=== PATIENT | male | born 1940 | race Caucasian/White ===

== ENCOUNTER 2017-03-17 20:20 | Inpatient (IN) | payer MEDICARE, OTHER ==
[~2017-03-17] VITALS: Ht 177.8 cm; Wt 104.2 kg
--- NOTE | ~2017-03-17 | ECH ---
Transthoracic Echocardiography Report (TTE) Demographics Patient Name EMILEE ESTES Date of Study 03/18/2017 Patient Number [id number] Visit Number [id number] Date of 1940 Room Number 311 Accession Number [id number] Gender Male Age 76 year(s) Referring Melissa JANE Grid Molder Maria D Cristina [facility] Physician Meet Hagan MD Physician Interpreting [facility] Rik R Fire Chief Physician MD Supervising Ordering Physician Melissa Dsouza MD/[facility] Nurse Stress Financial Reserve Clerk Conclusions Summary Technically fair exam. The estimated left ventricular ejection fraction is 60-65%. Moderate left ventricular hypertrophy. Diastolic assessment reveals Grade I diastolic dysfunction. The left atrium is severely dilated by LA volume index measurement. The right atrium is mildly dilated. Mild mitral regurgitation by color Doppler. Aortic sclerosis with no hemodynamically significant stenosis. Procedure Type of Study TTE procedure:Echo Complete SF. Procedure Date Date: 03/18/2017 Start: 10:21 AM Technical Quality: Fair due to body habitus. Indications:Chest pain and Acute IA. Appropriate Use Criteria: 9 Height: 70 inches Weight: 95.4 pounds BSA: 1.52 m Rhythm: Sinus with bundle branch block HR: 70 bpm BP: 130/68 mmHg Allergies - No known allergies. M-Mode/2D Measurements LV Diastolic Dimension: 4.85 cm LV Systolic Dimension: 3.17 cm LV Septum Diastolic: 1.8 cm LV PW Diastolic: 1.42 cm AO Root Dimension: 2.69 cm Cardiac Output: 4.53 l/min LA Dimension: 3.94 cm Cardiac Index: 2.98 l/min*m RV Diastolic Dimension: 3.43 cm LA volume index: 52 ml/m LVOT: 1.99 cm LVOT VTI: 20.82 cm RV Base: 4.6 cm LV Stroke volume: 64.72 ml RV Mid: 3.4 cm LV Stroke volume index: 42.58 ml/m RV Length: 7.4 cm Doppler Measurements AV Peak Velocity: 1.6 m/s MV Peak E-Wave: 0.94 m/s AV Peak Gradient: 10.24 mmHg MV Peak A-Wave: 1.31 m/s AV Mean Gradient: 6.12 mmHg MV E/A Ratio: 0.71 LVOT Peak Velocity: 1.19 m/s MV P1/2t: 87.1 msec AV Area (Continuity):2.05 cm MV Deceleration Time: 335.7 msec MV Area (PHT): 2.52 cm E' Septal Velocity: 0.05 m/s A' Septal Velocity: 0.1 m/s E' Lateral Velocity: 0.07 m/s A' Lateral Velocity: 0.09 m/s RA Area: 22.84 cm Findings Left Ventricle The left ventricle is normal in size . Moderate to severe left ventricular hypertrophy. Diastolic assessment reveals Grade I diastolic dysfunction. Right Ventricle Normal right ventricle structure and function. Left Atrium The left atrium is severely dilated by LA volume index measurement. Right Atrium The right atrium is mildly dilated. Mitral Valve Mild mitral annular calcification. Mild mitral regurgitation by color Doppler. Aortic Valve The aortic valve is mild to moderately sclerotic. There is no aortic regurgitation by color Doppler. Tricuspid Valve Normal tricuspid valve structure and function. Pulmonic Valve Normal pulmonic valve structure and function. Mild pulmonic valve regurgitation by color Doppler. Pericardial Effusion No evidence of pericardial effusion. Miscellaneous Visualized portions of the aortic root and ascending aorta appear normal in size. Pleural Effusion No evidence of pleural effusion. Contractility Score LV regional wall motion:(0-Non visualized 1-Normal 2-Hypokinesis 3-Akinesis 4-Dyskinesis 5-Aneurysm) Signature
--- NOTE | ~2017-03-17 | CATH ---
Cardiac Diagnostic + PCI Report Demographics Patient Name MEERA Varela Gender Male Date of 1940 Age 76 year(s) Patient Number [id number] Date of Study 03/17/2017 Visit Number [id number] Room Number 311 Corporate ID Ht 177.8 cm Wt 43.27 kg Accession Number [id number] BSA 1.52 m kg/m Referring Melissa JANE Primary Physician Physician Meet Hagan MD Performing Melissa JANE Secondary Physician Physician Meet Diagnostic Melissa JANE Assisting Physician Physician Meet Interventional Melissa JANE Physician Retail Cosmetics Sales Beauty Advisor Physician Meet Findings and Conclusions Diagnostic Findings and Conclusion Severe two vessel coronary artery disease. 100% distal RCA culprit lesion. Diagnostic Recommendations PCI of the RCA Interventional Findings and Conclusion Successful PCI of the distal RCA with a 2.75 x 16 Synergy stent. Interventional Recommendations Dual antiplatelet therapy. Risk factor modification. Staged PCI of the LAD. Procedure Description The patient was brought to the diagnostic cardiac catheterization laboratory by labor expediter personal. Physician deemed procedure as EMERGENT. Verbal consent was obtained. The planned puncture-incision site(s) were clipped and prepped with ChloraPrep and draped in the usual sterile manner. Conscious sedation, supplemental oxygen, and pain control medications were delivered by a registered nurse under physician guidance. Surface ECG rhythm, blood pressure measurement, and pulse oximetry were monitored throughout the procedure. Arterial access. The right radial access site was infiltrated with lidocaine. The vessel was entered with the Seldinger technique. A 6F sheath was advanced into the vessel and used for catheter placement. After unsuccessful attempts to engage the coronary arteries right femoral site was infiltrated with lidocaine. The vessel was entered with the Seldinger technique. A 6F sheath was advanced into the vessel and used for catheter placement. Selective left coronary angiography. A JL4 catheter was advanced into the left coronary vessel ostium under Fluoroscopic guidance. Contrast was injected by hand. Images were obtained in multiple projections. Selective right coronary angiography. An FR4 guide catheter was advanced into the right coronary vessel ostium under fluoroscopic guidance. Contrast was injected by hand. Images were obtained in multiple projections. Angioplasty and Stent Placement: The FR$ guiding catheter was used to intubate the vessel. A 0.14 Runthrough wire was then used to cross the lesion. A 2.5 x 12 Emerge balloon catheter was placed across the lesion and inflated. The balloon catheter was then removed. A 2.75 x 16 Synergy Drug Eluting Stent was placed and inflated. Post placement angiograms were performed. Left heart catheterization. An angled pigtail catheter was advanced across the aortic valve to the left ventricle under fluoroscopic guidance. Resting hemodynamics were obtained. Hemostasis: The sheath(s) was removed. Perclose(s) were tied and hemostasis was achieved. Hemostasis: The sheath was removed and a TR Band was placed. Hemostasis was achieved. The patient was transferred to the ICU nursing floor via cart accompanied by a nurse. The patient left the laboratory in stable condition. Diagnostic Cath Status: Emergency Procedure Procedure Type Diagnostic procedure:Angiography:, Coronary Angios w/[facility] PCI procedure:Drug Eluting Coronary Stent:, RCA Indications: Acute VA. The procedure was explained in detail to the patient. Risks, complications and alternative treatments were reviewed. Written consent was obtained. Medications Reviewed with Patient prior to Procedure. Complications: No Complication. Angiographic Findings Dominance: Right Cardiac Arteries and Lesion Findings LMCA: Normal (0% Stenosis). LAD: Abnormal. Lesion on Prox LAD: 90% stenosis . Lesion on Dist LAD: 80% stenosis . Lesion on 1st Diag: Mid subsection.70% stenosis . LCx: Minor Luminal Irregularities. RCA: Abnormal. Lesion on Dist RCA: Mid subsection.100% stenosis 16 mm length reduced to 0%. Pre procedure SINDI 0 flow was noted. Post Procedure SINDI III flow was present. The guidewire cross was successful.The lesion was diagnosed as a high risk lesion.Culprit lesion. Devices used - RUNTHROUGH WIRE 0.014" X 180CM. Number of passes: 1. - CATH BAL RX EMERGE 2.5X12. 2 inflation(s) to a max pressure of: 8 ashley. - CATH STENT SYNERGY 2.75 X 16. 1 inflation(s) to a max pressure of: 18 ashley. Ramus: Abnormal. Lesion on Ramus: Proximal subsection.50% stenosis . Coronary Tree Procedure Data Procedure Date Date: 03/17/2017Start: 09:06 PMEnd: 09:56 PM Entry Locations - Percutaneous access was performed through the Right Radial artery. A 6 Fr sheath was inserted. - Percutaneous access was performed through the Right Femoral artery (Primary location). A 6 Fr sheath was inserted. Hemostasis was successfully obtained using Perclose ProGlide ([place]). Procedure Medications Order and Administration + + +-------+-------+ !Time !Medication !Dosage !Route ! + + +-------+-------+ !03/17/2017 !SF Radial Cocktail: 200mcg Nitro, 2.5 mg ! !I.A. ! !09:08 PM !Verapamil, 5000u Heparin ! ! ! + + +-------+-------+ 03/17/2017 !Versed !1 mg !I.V. ! !09:08 PM ! ! ! ! + + +-------+-------+ 03/17/2017 !Fentanyl !25 mcg !I.V. ! !09:09 PM ! ! ! ! + + +-------+-------+ 03/17/2017 !Sodium Chloride !10 ml !I.V. ! !09:09 PM ! ! ! ! + + +-------+-------+ !03/17/2017 !Versed !1 mg !I.V. ! !09:14 PM ! ! ! ! + + +-------+-------+ !03/17/2017 !Fentanyl !25 mcg !I.V. ! !09:14 PM ! ! ! ! + + +-------+-------03/17/2017 !Fentanyl !50 mcg !I.V. ! !09:16 PM ! ! ! ! + + +-------+-------+ !03/17/2017 !Brilinta (Ticagrelor) (ACC_20) !180 mg !P.O. ! !09:31 PM ! ! ! ! + + +-------+-------+ !03/17/2017 !Versed !2 mg !I.V. ! !09:32 PM ! ! ! ! + + +-------+-------+ !03/17/2017 !Nitroglycerin !200 mcg!I.C. ! !09:32 PM ! ! ! ! + + +-------+-------+ !03/17/2017 !Oxygen !4 l/min!NC ! !09:35 PM ! ! ! ! + + +-------+-------+ Devices Used - A6 Fr6F TIG CATHETERwas used for:BilateralCoronary Angios.Unable to cannulate the vessel. - A6 FrCATH 6FR MULTIPACK CATHETERSwas used for:BilateralCoronary Angios. - A6 FrGUIDE CATHETER 6FR FR 4.0 100CMwas used for:RightsideCoronary Angios. Contrast Material - Isovue 10663 ml Fluoroscopy Time: Diagnostic: 7:36 minutes. Total: 7:36 minutes. Fluoroscopy Dose: Diagnostic: 1524 mGy. Total: 1524 mGy. Estimated Blood Loss: 15 ml. Medical History Allergies - No known allergies. Risk Factors The patient risk factors include:uncontrolled hypertension, diabetes mellitus, last creatinine: 0.9 mg/dl, creatinine clearance: 44.07 ml/min and Current/Recent(w/in 1 year) tobacco use. Admission Data Admission Date: 03/17/2017 Admission Time: 09:01 PM Insurance Payors: Medicare. Clinical Evaluation Leading to Procedure Hemodynamics Condition: Rest Estimated: Heart Rate: 51 bpm Pressures (mmHg) +-----+ + !Site !Pressure ! +-----+ + !AO !116/73 (92) ! +-----+ + !LV !102/5 ,17 ! +-----+ + !AO !100/65 (77) ! +-----+ + !LV !103/2 ,28 ! +-----+ + Valve Gradients and Areas + +---------+---------+---------+ +---------+ + !Valve !Peak !Mean !Area !Index !Flow !Source ! + +---------+---------+---------+ +---------+ + !Aortic !1 !0 ! ! ! ! ! + +---------+---------+---------+ +---------+ + !Aortic !1 !0 ! ! ! ! ! + +---------+---------+---------+ +---------+ + Shunts Oxygen Values O2 Capacity 217.6 Discharge Data Discharge Date: 03/19/2017 Hospital Status: Inpatient Signatures
--- NOTE | 2017-03-21 13:14 | ER ---
ADMIT: 03/17/2017 RM/LOC: 311 [facility] MR#: [id number] [address] [address] [place] [address] [facility] Emergency Room Report SEX: M AGE: 76 : 1940 DATE: 03/17/2017 The patient is a 76-year-old male with a past medical history of diabetes, hypertension, who is noncompliant with the medication for the last 2 or 3 days and has not been followed up by the primary care doctor for the last few years and not compliant with the medication for the last few years, came to the ER with chief complaint of chest pain which is in the middle of the chest, it started while he was resting, and it radiates a little to the left anterior chest. Pain is sharp, and the patient states previously he had episodes of diaphoresis and shortness of breath. When the EMS got to the scene, the patient had high blood pressure of systolic in 170s, the patient received aspirin 324 mg p.o. and also received two nitroglycerin sublingual 0.4 mg, which mildly decreased the pain. EKG was questionable for inferior ND with ST elevation in lead III and aVF and some reciprocal changes in lead II, V2. Cardiology Service, Dr. Torres was consulted, and the patient was admitted to blood bank laboratory technician for ST-elevation and myocardial infarction on the inferior part. Paxton Dawn MD/ ghanshyam JOB #: [id number] CC: Meet Torres MD, Attending Physician Meet Torres MD, Family Physician
--- NOTE | 2017-03-22 07:49 | HP ---
ADMIT: 03/17/2017 RM/LOC: 311 [facility] MR#: [id number] [address] [address] [place] [address] [facility] History and Physical SEX: M AGE: 76 : 1940 Corrected: 03/18/2017 0831 epifanio DATE OF SERVICE: REASON FOR CONSULTATION: Chest pain and inferior ST elevation myocardial infarction. HISTORY OF PRESENT ILLNESS: Chuy is a 76-year-old male with no prior cardiac history, but does have history of hypertension, hyperlipidemia, diabetes, and cigar smoking, who presented with about 45 minutes of substernal chest pressure that was radiating into his left shoulder. He was diaphoretic and short of breath. This came on suddenly. He was transported to ER via EMS. He received nitroglycerin, and his EKG showed inferior ST elevations. I was asked to evaluate him emergently. PAST MEDICAL HISTORY: 1. History of hypertension. 2. History of hyperlipidemia. 3. History of diabetes. 4. 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 5. History of gout. ALLERGIES: NO KNOWN DRUG ALLERGIES. MEDICATIONS: None. He refuses to take medications previously for his diabetes or hypertension. SOCIAL HISTORY: He is . He lives by himself in [place]. He smokes cigars. He has a rare alcohol use. Denies any illicit drug use. FAMILY HISTORY: No family history of early coronary artery disease. REVIEW OF SYSTEMS: GENERAL: Denies any fever, chills, or sweats. HEENT: Denies any visual changes. He has a decreased hearing. No difficulty swallowing. CARDIAC: As per HPI. PULMONARY: Does have history of smoking cigars. Denies any shortness of breath. No cough. GASTROINTESTINAL: Denies any nausea, vomiting, or diarrhea. GENITOURINARY: Denies any dysuria or hematuria. MUSCULOSKELETAL: He has a right xdgyo-kpp-tawu amputation. NEUROLOGIC: No history of TIA or strokes. ENDOCRINE: History of diabetes. No history of thyroid dysfunction. PSYCHIATRIC: Does have history of anxiety. Denies history of depression. All other systems reviewed and negative. PHYSICAL EXAMINATION: VITAL SIGNS: Blood pressure is 138/79, pulse 93, respirations 18, temperature 98.4, and oxygen was 93% on 2 L. GENERAL: He is in mild distress, but he is alert and oriented. ADMIT: 03/17/2017 RM/LOC: 311 [facility] MR#: [id number] [address] [address] [place] [address] OFC History and Physical SEX: M AGE: 76 : 1940 HEENT: Normocephalic and atraumatic. Moist mucous membranes. NECK: Supple. No lymphadenopathy. No carotid bruits. JVP is normal. HEART: Regular rate and rhythm. There is no murmurs, rubs, or gallops. LUNGS: Clear to auscultation bilaterally. ABDOMEN: Obese, nontender, nondistended. EXTREMITIES: No cyanosis or clubbing. He has mild edema in his left leg. His right has below-knee amputation. VASCULAR: He has 2+ radials bilaterally and 2+ femorals bilaterally. NEUROLOGIC: Cranial nerves II through XII intact. SKIN: No rashes. DIAGNOSTIC DATA: EKG shows sinus rhythm with a right bundle branch block and inferior ST-elevations consistent with myocardial injury. IMPRESSION AND PLAN: 1. Acute inferior ST-elevation myocardial infarction. 2. Hypertension. 3. Hyperlipidemia. 4. Diabetes. 5. Cigar smoking. RECOMMENDATIONS: Given his continued chest pain, an EKG changes are recommended. We take him emergently to the director of labor and delivery. I did discuss with him before taken to the director of labor and delivery he needs to agree to take medications as an outpatient, which he says he will do. I discussed the risks and benefits with him and his stepdaughter regarding cardiac catheterization including but limited to, stroke, heart attack, , bleeding, infection, renal failure. The patient understands these risks and agrees to proceed. We will take him emergently to the director of labor and delivery. Meet Torres MD/ ghanshyam JOB #: [id number] CC: Meet Torres, Attending Physician Meet Torres, Family Physician Corrected: 03/18/2017 0831 epifanio
[2017-03-26] MEDS ORDERED: NOVOLOG100 UNIT/2 SQ (06:43)
[2017-03-26] MEDS ORDERED: VANCOMYCIN HCL5 GM IV (06:45)
--- NOTE | 2017-03-27 07:52 | CO ---
ADMIT: 03/17/2017 RM/LOC: 311 [facility] MR#: [id number] ACC#: [id number] [address] [address] [place] [address] Consultation SEX: M AGE: 76 : 1940 DATE OF CONSULTATION: 03/18/2017 ATTENDING PHYSICIAN: Meet Torres CONSULTING PHYSICIAN: Chaz Meadows MD REASON FOR CONSULT: Assistance with medical management. HISTORY OF PRESENT ILLNESS: The patient is a very pleasant, but medically nonadherent 76-year-old gentleman with past medical history of uncontrolled diabetes, hypertension, hyperlipidemia, as well as peripheral vascular disease, status post right ysygv-wfc-xsjt amputation, who presents to [facility] emergency room last night with complaints of substernal chest pain. He was found to have an inferior ST-segment elevation ME, and was taken to collaborative physician by Dr. Torres. He underwent primary PCI to his distal RCA, was also noted to have some other lesions. The patient this morning notes he is feeling much better. No chest pain. No shortness of breath. No abdominal pain, nausea, or vomiting. I have not seen him in clinic since May of 2014 and he notes that he has been taking no medications at home, but otherwise he has been doing okay at home. Denies any chest pain, shortness of breath, abdominal pain, nausea, and vomiting. He and his family both note the restless legs have been bothering him more than anything recently. PAST MEDICAL/SURGICAL HISTORY: 1. Macular degeneration. 2. Osteoarthritis. 3. Diabetic peripheral neuropathy. 4. Uncontrolled type 2 diabetes with noted diabetic nephropathy/microalbuminuria. 5. Hypertension. 6. Peripheral vascular disease, status post right jirst-lae-fyba amputation. 7. Allergic rhinitis. 8. History of gout. 9. Hyperlipidemia. 10.Restless legs syndrome. 11.Morbid obesity. 12.Presbycusis. 13.Nocturnal hypoxemia, refusing sleep study. 14.Carpal tunnel syndrome. 15.History of nonsustained ventricular tachycardia. 16.Insomnia. 17.Venous stasis dermatitis. 18.Status post bilateral cataract extraction. 19.Status post bilateral carpal tunnel syndrome. 20.Status post tonsillectomy. 21.Status post sinus surgery in 1988. 22.History of tobacco abuse. ADMIT: 03/17/2017 RM/LOC: 311 [facility] MR#: [id number] 2620 [facility] [address] [place] [address] EMILEE ESTES [place] [id number] Consultation SEX: M AGE: 76 : 1940 HOME MEDICATIONS: None. ALLERGIES: NONE. FAMILY HISTORY: Brother with pancreatic cancer. Mother with Parkinson's. Father had an unknown type of cancer. SOCIAL HISTORY: He is and he lives at home by himself in [place]. He is an occasional drinker, and a former smoker, quit in 1983. REVIEW OF SYSTEMS: As noted above. All other systems reviewed and are negative. PHYSICAL EXAMINATION: VITAL SIGNS: 96.9, 69, 18, 132/78, 95% on room air. GENERAL: This is a morbidly obese, gentleman, he is very hard of hearing. He is no apparent distress. He is alert and oriented x2, cooperative with examiner. HEENT: Normocephalic and atraumatic. Mucous membranes are moist. NECK: Supple. LUNGS: Clear. HEART: Regular. ABDOMEN: Obese, soft, nontender, and nondistended. Positive bowel sounds. EXTREMITIES: He has right qjxqj-ept-fkhy amputation, changes of chronic venous stasis, and he has 2 to 3+ edema of the left leg. NEUROLOGIC: Cranial nerves II through XII are intact. No focal deficits are noted. LABORATORY AND X-RAY DATA: Lab work showed his CK of 764, MB was 66.3, troponin was 0.476. Hemoglobin 15.7, white count 15.6, and 294,000 platelets. Sodium 139, potassium 4, BUN is 10, and creatinine is 0.7. His EKG showed ST- segment elevation in II, III, and AVF. He was normal sinus rhythm at 92 beats per minute. There were no reciprocal changes. ASSESSMENT AND PLAN: 1. Coronary artery disease, status post ST-segment elevation myocardial infarction, inferior status post primary PCI with RCA. 2. Uncontrolled diabetes mellitus type 2. 3. Hypertension. 4. Hyperlipidemia. 5. Morbid obesity. 6. Peripheral vascular disease, status post right below-knee amputation. ADMIT: 03/17/2017 RM/LOC: 311 [facility] MR#: [id number] [address] [address] E[place]LEE ESTES [place] [id number] Consultation SEX: M AGE: 76 : 1940 7. Restless leg syndrome. At this time, I had a long talk with the patient really needs to do better job for risk factor modification and he understands that. Appreciate Cardiology's help with this difficult patient. aspirin/antiplatelet therapy, statin, blood pressure control. We need to get his diabetes under better control. Hemoglobin A1c is pending. We are going to continue with sliding scale insulin for right now and probably get him back on basal insulin. Get him on some Sinemet for his restless legs and will follow along, need Social Work to see him as they really question how safe he is at home. We will also have the telehealth nurse educator see him while he is here. Thank you very much for the consultation. Chaz Meadows MD/ ghanshyam JOB #: [id number] CC: Meet Torres, Attending Physician Meet Torres, Family Physician
--- NOTE | 2017-03-27 09:41 | DS ---
ADMIT: 03/17/2017 RM/LOC: 311 [facility] MR#: [id number] 2620 [facility] [address] [place] [address] General Discharge Summary SEX: M AGE: 76 : 1940 ADMISSION DATE: 03/17/2017 DISCHARGE DATE: 03/19/2017 REASON FOR ADMISSION: Chest pain and inferior ST elevation myocardial infarction. Rand Bishop RN, scribing for Dr. Meet Torres. CONSULTS OBTAINED: Dr. Chaz Meadows on 03/18/2017, for medical management. PROCEDURES PERFORMED: 1. On 03/17/2017, by Dr. Meet Torres, left heart catheterization with selective coronary angiography and left ventriculogram percutaneous coronary intervention with drug-eluting coronary stent to right coronary artery. 2. On 03/18/2017, echocardiogram demonstrating ejection fraction of 60% to 65%. FINAL DIAGNOSES: 1. Acute inferior ST elevation myocardial infarction. 2. Coronary artery disease status post emergent PCI, right coronary artery with GHANSHYAM. 3. Hypertension. 4. Hyperlipidemia. 5. Nonsustained ventricular tachycardia. 6. Obesity. 7. Peripheral vascular disease, status post right xdwts-nej-obni amputation. 8. Diabetes mellitus type 2. Rand Bishop RN / Meet Torres MD / modl JOB #: [id number] CC: Meet Torres MD, Attending Physician Meet Torres MD, Family Physician
[2017-05-15] MEDS ORDERED: LIPITOR DPS20 MG PO (15:25)
[2017-05-15] MEDS ORDERED: ASA CHILDREN'S81 MG PO (15:25)
[2017-05-15] MEDS ORDERED: GLUCOPHAGE-DPS500 MG PO (15:26)
[2017-05-15] MEDS ORDERED: BRILINTA90 MG PO (15:26)
[2017-05-15] MEDS ORDERED: SINEMET 25-1001 EACH PO (15:26)
[2017-05-15] MEDS ORDERED: ZESTRIL DPS10 MG PO (15:26)
[2017-05-15] MEDS ORDERED: TYLENOL DPS325 MG PO (15:27)
[2017-05-15] MEDS ORDERED: NITROSTAT0.4 MG (15:27)
[2017-05-15] MEDS ORDERED: LEVEMIR100 UNIT/1 SQ (15:27)
[2017-05-15] MEDS ORDERED: COREG DPS6.25 MG PO (15:27)
[2017-05-15] MEDS ORDERED: NITROSTAT0.4 MG SL (15:28)
[2017-05-15] MEDS ORDERED: COLACE-DPS100 MG PO (15:28)
[2017-05-15] MEDS ORDERED: MAALOX DPS30 ML PO (15:28)
== END 2017-03-19 16:30 | disposition home health service (06) | DRG 247 ==
LOC: ER 20:20 → SSS 21:00 → 3ICU 21:01
PROVIDERS: ADMIT Internal Medicine Cardiovascular Disease
DX: I21.19 ST elevation (STEMI) myocardial infarction involving other coronary artery of inferior wall (principal); I47.2 Ventricular tachycardia; E11.21 Type 2 diabetes mellitus with diabetic nephropathy; E11.42 Type 2 diabetes mellitus with diabetic polyneuropathy; I25.10 Atherosclerotic heart disease of native coronary artery without angina pectoris; M10.9 Gout, unspecified; E11.51 Type 2 diabetes mellitus with diabetic peripheral angiopathy without gangrene; E11.65 Type 2 diabetes mellitus with hyperglycemia; M19.90 Unspecified osteoarthritis, unspecified site; I10 Essential (primary) hypertension; H35.30 Unspecified macular degeneration; G25.81 Restless legs syndrome; J30.9 Allergic rhinitis, unspecified; E66.9 Obesity, unspecified; Z68.32 Body mass index [BMI] 32.0-32.9, adult; H91.10 Presbycusis, unspecified ear; R09.02 Hypoxemia; G47.00 Insomnia, unspecified; E78.5 Hyperlipidemia, unspecified; F17.290 Nicotine dependence, other tobacco product, uncomplicated; Z89.511 Acquired absence of right leg below knee; Z86.14 Personal history of Methicillin resistant Staphylococcus aureus infection; Z91.19 Patient's noncompliance with other medical treatment and regimen; Z66 Do not resuscitate

== ENCOUNTER 2017-03-21 08:05 | Inpatient (IN) | payer MEDICARE, OTHER ==
[~2017-03-21] VITALS: Ht 177.8 cm; Wt 106.1 kg
--- NOTE | 2017-03-22 19:50 | HP ---
ADMIT: 03/21/2017 RM/LOC: 421 [facility] MR#: [id number] [address] [address] [place] [address] History and Physical SEX: M AGE: 76 : 1940 DATE OF SERVICE: CHIEF COMPLAINT: Confusion and leg pain. HISTORY OF PRESENT ILLNESS: The patient is a pleasant, hard of hearing, 76- year-old gentleman, who up until recently had complete medical nonadherence. Had not been seeing doctors for years or taking any medications. He just suffered an ST-elevation ND with a stent placement earlier this last week. Had been at home, but over the last few days, had been increasingly confused. Falls three times yesterday. Reports severe left leg and knee pain. Cannot bend it, he states. He has been very confused, much worse than baseline according to his aevvlpjb-aw-wbn. Some fevers. Nausea. Not eating well. No vomiting. Took extra dose of his medications all yesterday. The sterilizers not doing well at all. Presented to the emergency room since he could not move his leg. PAST MEDICAL HISTORY: 1. Peripheral vascular disease, status post right lower extremity amputation, BKA. 2. Type 2 diabetes. 3. Peripheral neuropathy, diabetic. 4. Osteoarthritis. 5. Macular degeneration. 6. Hypertension. 7. History of gout. 8. Restless legs. 9. Hyperlipidemia. 10.Morbid obesity. 11.History of carpal tunnel surgery, tonsillectomy, sinus surgery. 12.Coronary artery disease, status post stent, last week. FAMILY HISTORY: Significant for pancreatic cancer in a brother. Mother and father with diabetes, he states. SOCIAL HISTORY: , lives at home by himself. Family involved, son and pcpjkhnm-ra-bbo. Former smoker many, many years ago. Rare alcohol use. REVIEW OF SYSTEMS: As per HPI. Otherwise, completely reviewed and negative. PHYSICAL EXAMINATION: VITAL SIGNS: Blood pressure currently 111/57, heart rate 88, O2 saturation 97% on oxygen 3 to -4 L. Afebrile. GENERAL: He is alert, very hard of hearing. Some confusion. Trouble following conversation. HEENT: Normocephalic and atraumatic. Pupils are equal bilaterally. No icterus. Very dry mucous membranes. NECK: No lymphadenopathy. Soft and supple. Trachea midline. LUNGS: Clear to auscultation bilaterally. No wheezes, rales, or rhonchi. HEART: Regular rate and rhythm. No murmurs, rubs, or gallops. ABDOMEN: Soft, nontender, and nondistended. Bowel sounds present. ADMIT: 03/21/2017 RM/LOC: 421 [facility] MR#: [id number] [address] [address] EMILEE ESTES [address] [place] [address] History and Physical SEX: M AGE: 76 : 1940 EXTREMITIES: No cyanosis. He has in his left lower extremity 1+ edema. Right lower extremity BKA. SKIN: He has erythema and induration over his left lower extremity, below the knee. MUSCULOSKELETAL: He does not have much range of motion in his left knee without pain that keeps him from moving at much past about 50% range of motion. He hurts behind the knee when we move it. NEUROLOGICAL: No focal deficits noted. Cranial nerves II through XII grossly intact. SKIN: Very dry. PSYCHIATRIC: Normal mood and affect. Interacts well with his daughter-in- law. LABORATORY AND X-RAY DATA: His procalcitonin is 2.2. A1c 7.8 the other day. Sodium 132, potassium 3.7, bicarb 21, UA is negative. White count 23,000, hemoglobin 15.3, and platelets 288. CK 1151. Troponin 4.95. INR 1.1. Creatinine 1.3, mag 1.6. EKG; no acute ST-segment abnormalities. Ultrasound of his leg is negative for DVT. CAT scan of his head, overall unremarkable. Chest x-ray reviewed personally. No large infiltrate and already showed some minimal opacities in left lower lobe, underlying pneumonia versus pleural effusion. ASSESSMENT AND PLAN: 1. Cellulitis. 2. Sepsis secondary to cellulitis. 3. Recent ST segment elevation myocardial infarction. 4. Coronary artery disease. 5. Peripheral vascular disease. 6. Diabetes type 2. 7. Confusion and encephalopathy secondary to infection. 8. DNR/DNI. 9. Acute kidney injury. PLAN: At this point in time, we will give him IV fluids. His blood pressure ADMIT: 03/21/2017 RM/LOC: 421 [facility] MR#: [id number] [address] [place] [id number] [place] [address] History and Physical SEX: M AGE: 76 : 1940 had dropped down to the 70s in the ER temporarily, but much improved now. He will go to the PCU given his risk for worsening. Give him fluids. Watch his renal status and volume status closely. Antibiotics. Vancomycin at this time given his cellulitis is a source, it looks like. He got a dose in the ER already as well. We will repeat a chest x-ray in the morning. In regard to his troponin. May all be secondary to his recent STEMI. Only have one in between the time that was checked. We will check one in 6 hours to monitor the trend. If increasing, obviously Cardiology involved, and I suspect it is all secondary to STEMI and is coming down rather than going up. We will watch his blood sugars closely. I think he will definitely need placement given his failure at home. Likely slow recovery from all of this. The patient and daughter agreeable to this. Discussed code status. Reaffirmed DNR/DNI. Kenny Morin MD/ ghanshyam JOB #: [id number] CC: Chaz Meadows, Attending Physician Chaz Meadows, Family Physician
[2017-03-26] MEDS ORDERED: NOVOLOG100 UNIT/2 SQ (06:43)
[2017-03-26] MEDS ORDERED: VANCOMYCIN HCL5 GM IV (06:45)
--- NOTE | 2017-03-27 15:52 | ER ---
ADMIT: 03/21/2017 RM/LOC: 421 [facility] MR#: [id number] ACC#: [id number] [address] [address] [place] [address] Emergency Room Report SEX: M AGE: 76 : 1940 DATE: 03/21/2017 CHIEF COMPLAINT: Confusion and fall. HISTORY OF PRESENT ILLNESS: The patient is a 76-year-old male, who has not gotten much medical care in the last three years, who came in on 03/17 with chest pain, is found to have an ST-elevation TX. He was admitted that time, taken to screedman/laborer, had a stent placed in his RCA and was discharged 2 days later. On 1st day of discharge which was two days ago, he was doing fine, but yesterday in the afternoon, he started having some problems getting around and family felt like he was confused. That persisted through the evening and got worse. He is brought at this time because he is complaining of pain in his left leg and family notes his confusion. He does have a right below-knee amputation from previous problems with neuropathy, diabetes, and peripheral vascular disease. He has no history of blood clots. The heart catheterization was done in the right leg, and the left leg is the one he is having pain and redness and warmth at this time. REVIEW OF SYSTEMS: A 10-point review of systems is done and otherwise negative except as in HPI. PAST MEDICAL HISTORY: Significant for coronary artery disease, diabetes, hyperlipidemia, peripheral vascular disease, and morbid obesity. PAST SURGICAL HISTORY: He has had bilateral cataract surgery, bilateral carpal tunnel surgery, and a distal stent in his RCA four days ago. He also had a right below-knee amputation. MEDICATIONS: See nurse's note. He is on: 1. Aspirin. 2. Brilinta. ALLERGIES: NONE. SOCIAL HISTORY: Lives alone. Uses alcohol occasionally. Quit smoking over 20 years ago. PHYSICAL EXAMINATION: GENERAL: The patient is alert, does not appear in any distress. HEENT: Head is atraumatic. HEART: Regular rate and rhythm. LUNGS: Clear to auscultation. ABDOMEN: Obese, soft, and nontender. EXTREMITIES: Upper extremities show no abnormalities. Right lower extremity shows a below-knee amputation. The stump appears unremarkable. He does have a site noted on his right inguinal region from his recent catheterization that does not appear infected and there is no abnormalities seen there. Left lower extremity shows he has some redness below the knee consistent with cellulitis. He does not have any calf tenderness or swelling I can appreciate. I do not ADMIT: 03/21/2017 RM/LOC: 421 [facility] MR#: [id number] [address] [address] [place] [address] Emergency Room Report SEX: M AGE: 76 : 1940 feel any cords. He does have sensation, he is able to move that left lower leg, but hurts to move the leg. I find no focal findings on his exam. LABORATORY DATA: CT head is unremarkable other than some mild sinus disease. Chest x-ray shows, could be a possible opacity in the left lower lobe. Procalcitonin is 2.23. Lactic is 1.3. White count is 23.8, with an ANC of 19. Sodium slightly low at 132, carbon dioxide 21 BUN 25, glucose 184. INR 1.19. Urinalysis was normal. EKG showed sinus rhythm, rate of 90. I see no signs of ST-elevation or acute TX at this time. EMERGENCY DEPARTMENT COURSE: We did a sepsis routine on the patient. He was never hypotensive. He did receive 500 mL of normal saline in the Emergency Department. Due to the possible cellulitis in his left lower leg and concern for pneumonia, he was given antibiotics in the Emergency Department. I have ordered an ultrasound of his left lower leg, but have not gotten the results yet. I spoke to Dr. Morin, and he will be admitting the patient at this time. He is admitted in stable condition. DIAGNOSIS: 1. Cellulitis, left leg. 2. Pneumonia. 3. Confusion. 4. Sepsis. Rivera Justin MD/ ghanshyam JOB #: [id number] CC: Chaz Meadows MD, Attending Physician Chaz Meadows MD, Family Physician
--- NOTE | 2017-04-05 21:18 | DS ---
ADMIT: 03/21/2017 RM/LOC: 421 [facility] MR#: [id number] [facility]#: [id number] [address] [address] [place] [address] Discharge Summary SEX: M AGE: 76 : 1940 ADMISSION DATE: 03/21/2017 DISCHARGE DATE: 03/24/2017 DISCHARGE DIAGNOSES: 1. Sepsis, resolved. 2. Left lower extremity cellulitis. 3. Peripheral vascular disease, status post right below the knee amputation. 4. Acute kidney injury, resolved. 5. Coronary artery disease, status post recent ST-segment elevation UT (myocardial infarction) and PCI (percutaneous coronary intervention). 6. Diabetes mellitus, type 2. 7. Obesity. 8. Severe presbycusis. PROCEDURES: None. CONSULTATIONS: None. REASON FOR ADMISSION: A very pleasant, but very hard of hearing, 76-year-old gentleman with chronic medical problems who presents to [facility] Emergency Room on the day of admission with complaints of confusion and a fall. He was found to have a left lower extremity cellulitis and was admitted for further evaluation and treatment. For complete details, please see history and physical dictated on the day of admission. HOSPITAL COURSE: At the time of admission, the patient was placed in a monitor bed. He underwent monitoring with telemetry. He was started on broad- spectrum antibiotics. Blood cultures had been obtained. The patient had a slow improvement of his left lower extremity cellulitis. He has history of MRSA so vancomycin was continued, improved very nicely. His sepsis symptoms resolved. His acute kidney injury resolved with some IV fluids and medication adjustments. His blood sugars were monitored closely. He was continued on his Brilinta and aspirin. He was seen by PT and OT and thought to be too debilitated to return home. A midline PICC was placed to finish up 14 days of vancomycin. He did well and was thought to be ready for discharge on 03/24. Discharge medications as per his discharge medication list. Discharge activity will be Physical Therapy and Occupational Therapy. Discharge diet will be ADA cardiac as tolerated. As mentioned above, he will finish a total 14 days of IV vancomycin to be dosed by pharmacy and we will see him back for hospital followup from custodial facility where he will be rehabbing in the next 7-10 days. Chaz Meadows MD/ pao JOB #: [id number] CC: Chaz Meadows MD, Attending Physician ADMIT: 03/21/2017 RM/LOC: 421 [facility] MR#: [id number] [facility] [address] [address] EMILEE ESTES [address] [facility] [place] [address] Discharge Summary SEX: M AGE: 76 : 1940 Chaz Meadows MD, Family Physician
[2017-05-15] MEDS ORDERED: LIPITOR DPS20 MG PO (15:25)
[2017-05-15] MEDS ORDERED: ASA CHILDREN'S81 MG PO (15:25)
[2017-05-15] MEDS ORDERED: ZESTRIL DPS10 MG PO (15:26)
[2017-05-15] MEDS ORDERED: SINEMET 25-1001 EACH PO (15:26)
[2017-05-15] MEDS ORDERED: GLUCOPHAGE-DPS500 MG PO (15:26)
[2017-05-15] MEDS ORDERED: BRILINTA90 MG PO (15:26)
[2017-05-15] MEDS ORDERED: TYLENOL DPS325 MG PO (15:27)
[2017-05-15] MEDS ORDERED: LEVEMIR100 UNIT/1 SQ (15:27)
[2017-05-15] MEDS ORDERED: COREG DPS6.25 MG PO (15:27)
[2017-05-15] MEDS ORDERED: NITROSTAT0.4 MG (15:27)
[2017-05-15] MEDS ORDERED: MAALOX DPS30 ML PO (15:28)
[2017-05-15] MEDS ORDERED: COLACE-DPS100 MG PO (15:28)
[2017-05-15] MEDS ORDERED: NITROSTAT0.4 MG SL (15:28)
== END 2017-03-24 16:00 | DRG 871 ==
LOC: ER 08:05 → 4PCU 10:02
PROVIDERS: ADMIT Internal Medicine
DX: A41.9 Sepsis, unspecified organism (principal); I21.3 ST elevation (STEMI) myocardial infarction of unspecified site; G93.40 Encephalopathy, unspecified; N17.9 Acute kidney failure, unspecified; L03.116 Cellulitis of left lower limb; E11.42 Type 2 diabetes mellitus with diabetic polyneuropathy; E11.51 Type 2 diabetes mellitus with diabetic peripheral angiopathy without gangrene; E78.5 Hyperlipidemia, unspecified; M19.90 Unspecified osteoarthritis, unspecified site; E66.9 Obesity, unspecified; Z68.32 Body mass index [BMI] 32.0-32.9, adult; H91.10 Presbycusis, unspecified ear; H35.30 Unspecified macular degeneration; R29.6 Repeated falls; M10.9 Gout, unspecified; I25.10 Atherosclerotic heart disease of native coronary artery without angina pectoris; I10 Essential (primary) hypertension; G25.81 Restless legs syndrome; Z91.19 Patient's noncompliance with other medical treatment and regimen; Z87.891 Personal history of nicotine dependence; Z79.82 Long term (current) use of aspirin; Z95.5 Presence of coronary angioplasty implant and graft; Z89.511 Acquired absence of right leg below knee; Z66 Do not resuscitate; Z86.14 Personal history of Methicillin resistant Staphylococcus aureus infection; Z79.84 Long term (current) use of oral hypoglycemic drugs